=== PATIENT | female | born 1955 | race Caucasian/White ===

== ENCOUNTER 2016-10-22 02:19 | Emergency (ER) | payer MEDICARE ==
[~2016-10-22] VITALS: Ht 157.4 cm; Wt 68.0 kg
[~2016-10-22 02:19] MED LIST: ATIVAN0.5 MG PO; ATIVAN1 MG PO; BENTYL10 MG PO; CIPRO250 MG PO; DONNATAL1 TAB PO; HYDROCODONE BIT1 T11 PO; INDOCIN50 M2 PO; INDOMETHACIN50 MG PO; LOMOTIL 0.025 M1 TA1 PO; NORCO 5-325 TA1 EACH PO; ONDANSETRON HYDR4 M1 SL; PHENERGAN25 M1 PO; PHENERGAN25 M3 PO; PHENERGAN50 M2 PO; PREDNICOT20 MG PO; PREDNISONE10 MG PO; PRILOSEC OTC20 MG PO; PRILOSEC40 MG PO; PROMETHAZINE12.5 M5 PO; RESTORIL30 MG PO; ROBAXIN-750750 MG PO; TRAMADOL HCL50 MG PO; TRAMADOL50 MG PO; ULTRAM50 MG PO; VISTARIL25 MG PO; ZOFRAN ODT4 MG SL; ZOFRAN4 MG PO; Zofran4 MG PO
== END 2016-10-22 03:41 | disposition home or self-care (01) ==
LOC: ED 02:19
DX: K58.9 Irritable bowel syndrome, unspecified (principal); F41.9 Anxiety disorder, unspecified; Z88.6 Allergy status to analgesic agent; Z79.899 Other long term (current) drug therapy

== ENCOUNTER 2016-11-11 21:21 | Emergency (ER) | payer MEDICARE ==
[~2016-11-11] VITALS: Ht 157.4 cm; Wt 68.0 kg
== END 2016-11-11 22:16 | disposition home or self-care (01) ==
LOC: ED 21:21
DX: K58.9 Irritable bowel syndrome, unspecified (principal); G89.29 Other chronic pain; F41.9 Anxiety disorder, unspecified; Z98.890 Other specified postprocedural states; Z90.710 Acquired absence of both cervix and uterus; Z90.49 Acquired absence of other specified parts of digestive tract; Z88.5 Allergy status to narcotic agent; Z88.6 Allergy status to analgesic agent

== ENCOUNTER 2017-01-19 21:01 | Emergency (ER) | payer MEDICARE ==
[~2017-01-19] VITALS: Ht 157.4 cm; Wt 68.0 kg
== END 2017-01-20 00:17 | disposition home or self-care (01) ==
LOC: ED 21:01
DX: G89.29 Other chronic pain (principal); R10.9 Unspecified abdominal pain; R11.2 Nausea with vomiting, unspecified; R19.7 Diarrhea, unspecified; Z88.6 Allergy status to analgesic agent; Z79.899 Other long term (current) drug therapy

== ENCOUNTER 2017-01-26 22:12 | Emergency (ER) | payer MEDICARE ==
[~2017-01-26] VITALS: Ht 157.4 cm; Wt 68.0 kg
[2017-01-26] MEDS ORDERED: OXYCODONE HCL5 MG PO (22:14)
[2017-01-26 23:44] LABS: BASO % 0.3 % (0.0-1.0); EOS # 0.1 10*3/uL (0.0-0.4); EOS % 0.7 % (1.0-4.0); HEMATOCRIT 41.6 % (37.0-47.0); LYMPH # 2.4 10*3/uL (1.3-4.4); LYMPH % 21.3 % (27.0-41.0); MEAN CELL VOLUME 96.7 fl (81.0-99.0); MEAN CORPUSCULAR HGB 32.6 pg (27.0-31.0); MEAN CORPUSCULAR HGB CONC 33.7 g/dl (33.0-37.0); MEAN PLATELET VOLUME 9.1 fl (9.6-12.3); MONO # 0.8 10*3/uL (0.1-1.0); MONO % 7.5 % (3.0-9.0); NEUT # 7.8 10*3/uL (2.3-7.9); NEUT % 69.8 % (47.0-73.0); PLATELET COUNT AUTOMATED 330 10*3/uL (130-400); RED CELL DISTRI WIDTH 12.6 % (0-14.5); WHITE BLOOD COUNT 11.1 10*3/uL (4.8-10.8)
[2017-01-27] LABS: ALBUMIN 3.9 gm/dl (3.1-4.5); ALKALINE PHOSPHATASE 124 U/L (45-117); BILIRUBIN, TOTAL 0.4 mg/dl (0.2-1.0); BUN 12 mg/dl (7-24); CARBON DIOXIDE 27 mmol/L (21-32); CHLORIDE 108 mmol/L (98-107); EST GLOM FILT AFRICAN AMERICAN > 60 ml/min; GLUCOSE 99 mg/dL (65-99); POTASSIUM 3.8 mmol/L (3.5-5.1); SGOT/AST 18 IU/L (3-35); SGPT/ALT 27 U/L (12-78); SODIUM 141 mmol/L (136-145); TOTAL PROTEIN 7.7 gm/dL (6.4-8.2)
== END 2017-01-27 01:18 | disposition home or self-care (01) ==
LOC: ED 22:12
PROVIDERS: Physician Assistant
DX: G89.29 Other chronic pain (principal); R10.84 Generalized abdominal pain; K21.9 Gastro-esophageal reflux disease without esophagitis; K58.9 Irritable bowel syndrome, unspecified; Z98.890 Other specified postprocedural states; Z90.710 Acquired absence of both cervix and uterus; Z90.49 Acquired absence of other specified parts of digestive tract; Z88.5 Allergy status to narcotic agent; Z88.6 Allergy status to analgesic agent; Z79.899 Other long term (current) drug therapy

== ENCOUNTER 2017-02-10 23:27 | Emergency (ER) | payer MEDICARE ==
[~2017-02-10] VITALS: Ht 157.4 cm; Wt 72.6 kg
[~2017-02-10 23:27] MED LIST changes: +OXYCODONE HCL5 MG PO
[2017-02-10] MEDS ORDERED: PROCHLORPERAZIN25 MG R (23:53)
== END 2017-02-11 00:32 | disposition home or self-care (01) ==
LOC: ED 23:27
DX: K58.0 Irritable bowel syndrome with diarrhea (principal); F41.9 Anxiety disorder, unspecified; Z88.6 Allergy status to analgesic agent; Z79.899 Other long term (current) drug therapy

== ENCOUNTER 2017-03-03 19:18 | Emergency (ER) | payer MEDICARE ==
[~2017-03-03] VITALS: Ht 157.4 cm; Wt 72.6 kg
[~2017-03-03 19:18] MED LIST changes: +PROCHLORPERAZIN25 MG R
[2017-03-03 21:19] LABS: BASO % 0.4 % (0.0-1.0); EOS % 0.3 % (1.0-4.0); HEMATOCRIT 40.3 % (37.0-47.0); HEMOGLOBIN 13.4 g/dl (12.0-16.0); LYMPH # 2.2 10*3/uL (1.3-4.4); LYMPH % 23.4 % (27.0-41.0); MEAN CELL VOLUME 97.6 fl (81.0-99.0); MEAN CORPUSCULAR HGB 32.4 pg (27.0-31.0); MEAN CORPUSCULAR HGB CONC 33.3 g/dl (33.0-37.0); MEAN PLATELET VOLUME 9.5 fl (9.6-12.3); MONO # 0.5 10*3/uL (0.1-1.0); MONO % 4.9 % (3.0-9.0); NEUT # 6.6 10*3/uL (2.3-7.9); NEUT % 70.8 % (47.0-73.0); PLATELET COUNT AUTOMATED 339 10*3/uL (130-400); RED BLOOD COUNT 4.13 10*6/uL (4.10-5.10); RED CELL DISTRI WIDTH 12.5 % (0-14.5); WHITE BLOOD COUNT 9.3 10*3/uL (4.8-10.8)
[2017-03-03 21:47] LABS: ALBUMIN 3.9 gm/dl (3.1-4.5); ALKALINE PHOSPHATASE 124 U/L (45-117); BILIRUBIN, TOTAL 0.4 mg/dl (0.2-1.0); BUN 11 mg/dl (7-24); CARBON DIOXIDE 25 mmol/L (21-32); CHLORIDE 112 mmol/L (98-107); EST GLOM FILT AFRICAN AMERICAN > 60 ml/min; GLUCOSE 95 mg/dL (65-99); MAGNESIUM 1.9 mg/dL (1.5-2.1); POTASSIUM 4.1 mmol/L (3.5-5.1); SGOT/AST 25 IU/L (3-35); SGPT/ALT 32 U/L (12-78); SODIUM 142 mmol/L (136-145); TOTAL PROTEIN 7.2 gm/dL (6.4-8.2)
== END 2017-03-03 23:54 | disposition home or self-care (01) ==
LOC: ED 19:18
PROVIDERS: Emergency Medicine Emergency Medical Services
DX: G89.29 Other chronic pain (principal); R10.9 Unspecified abdominal pain; K58.9 Irritable bowel syndrome, unspecified; F41.9 Anxiety disorder, unspecified; Z90.49 Acquired absence of other specified parts of digestive tract; Z88.6 Allergy status to analgesic agent; Z88.8 Allergy status to other drugs, medicaments and biological substances

== ENCOUNTER 2017-03-12 00:11 | Emergency (ER) | payer MEDICARE ==
[~2017-03-12] VITALS: Ht 157.4 cm; Wt 72.6 kg
[2017-03-12] MEDS ORDERED: COMPAZINE R (00:24)
[2017-03-12 01:33] LABS: BASO % 0.5 % (0.0-1.0); EOS # 0.2 10*3/uL (0.0-0.4); EOS % 2.4 % (1.0-4.0); HEMATOCRIT 42.2 % (37.0-47.0); HEMOGLOBIN 14.2 g/dl (12.0-16.0); LYMPH # 3.9 10*3/uL (1.3-4.4); LYMPH % 44.4 % (27.0-41.0); MEAN CELL VOLUME 95.7 fl (81.0-99.0); MEAN CORPUSCULAR HGB 32.2 pg (27.0-31.0); MEAN CORPUSCULAR HGB CONC 33.6 g/dl (33.0-37.0); MEAN PLATELET VOLUME 9.6 fl (9.6-12.3); MONO # 0.8 10*3/uL (0.1-1.0); MONO % 8.7 % (3.0-9.0); NEUT # 3.9 10*3/uL (2.3-7.9); NEUT % 43.8 % (47.0-73.0); PLATELET COUNT AUTOMATED 330 10*3/uL (130-400); RED BLOOD COUNT 4.41 10*6/uL (4.10-5.10); RED CELL DISTRI WIDTH 12.6 % (0-14.5); WHITE BLOOD COUNT 8.9 10*3/uL (4.8-10.8)
[2017-03-12 01:58] LABS: ALBUMIN 3.8 gm/dl (3.1-4.5); ALKALINE PHOSPHATASE 131 U/L (45-117); BILIRUBIN, TOTAL 0.3 mg/dl (0.2-1.0); BUN 12 mg/dl (7-24); CARBON DIOXIDE 22 mmol/L (21-32); CHLORIDE 111 mmol/L (98-107); EST GLOM FILT AFRICAN AMERICAN > 60 ml/min; GLUCOSE 75 mg/dL (65-99); POTASSIUM 4.4 mmol/L (3.5-5.1); SGOT/AST 25 IU/L (3-35); SGPT/ALT 23 U/L (12-78); SODIUM 144 mmol/L (136-145); TOTAL PROTEIN 7.5 gm/dL (6.4-8.2)
[2017-03-12 03:19] LABS: BILIRUBIN NEGATIVE (NEGATIVE); BLOOD NEGATIVE (NEGATIVE); CLARITY CLEAR (CLEAR); COLOR YELLOW (YELLOW); GLUCOSE NEGATIVE (NEGATIVE); KETONE NEGATIVE (NEGATIVE); LEUKO ESTERASE NEGATIVE (NEGATIVE); NITRITE NEGATIVE (NEGATIVE); PROTEIN NEGATIVE (NEGATIVE); SPECIFIC GRAVITY >= 1.030 (1.005-1.030); UROBILINOGEN 0.2 E.U./dl (0.2-1.0)
[2017-03-12 03:42] LABS: BACTERIA TRACE; EPITHELIAL CELLS 15-20; URINE REFLEX COMMENT NO (NO)
== END 2017-03-12 04:23 | disposition home or self-care (01) ==
LOC: ED 00:11
PROVIDERS: Emergency Medicine
DX: K58.0 Irritable bowel syndrome with diarrhea (principal); G89.29 Other chronic pain; R10.84 Generalized abdominal pain; F41.9 Anxiety disorder, unspecified; Z98.890 Other specified postprocedural states; Z90.710 Acquired absence of both cervix and uterus; Z88.5 Allergy status to narcotic agent; Z88.6 Allergy status to analgesic agent; Z79.899 Other long term (current) drug therapy

== ENCOUNTER 2017-03-24 01:54 | Emergency (ER) | payer MEDICARE ==
[~2017-03-24] VITALS: Ht 157.4 cm; Wt 72.6 kg
[~2017-03-24 01:54] MED LIST changes: +COMPAZINE R
[2017-03-24 02:54] LABS: BASO % 0.5 % (0.0-1.0); EOS # 0.2 10*3/uL (0.0-0.4); EOS % 2.9 % (1.0-4.0); HEMATOCRIT 43.3 % (37.0-47.0); HEMOGLOBIN 14.3 g/dl (12.0-16.0); LYMPH # 3.7 10*3/uL (1.3-4.4); LYMPH % 46.9 % (27.0-41.0); MEAN CELL VOLUME 95.8 fl (81.0-99.0); MEAN CORPUSCULAR HGB 31.6 pg (27.0-31.0); MEAN PLATELET VOLUME 9.2 fl (9.6-12.3); MONO # 0.7 10*3/uL (0.1-1.0); MONO % 8.8 % (3.0-9.0); NEUT # 3.2 10*3/uL (2.3-7.9); NEUT % 40.6 % (47.0-73.0); PLATELET COUNT AUTOMATED 342 10*3/uL (130-400); RED BLOOD COUNT 4.52 10*6/uL (4.10-5.10); RED CELL DISTRI WIDTH 12.5 % (0-14.5); WHITE BLOOD COUNT 7.8 10*3/uL (4.8-10.8)
[2017-03-24 03:10] LABS: ALBUMIN 3.7 gm/dl (3.1-4.5); ALKALINE PHOSPHATASE 152 U/L (45-117); BILIRUBIN, TOTAL 0.3 mg/dl (0.2-1.0); BUN 15 mg/dl (7-24); CARBON DIOXIDE 22 mmol/L (21-32); CHLORIDE 110 mmol/L (98-107); EST GLOM FILT AFRICAN AMERICAN > 60 ml/min; GLUCOSE 96 mg/dL (65-99); POTASSIUM 4.8 mmol/L (3.5-5.1); SGOT/AST 33 IU/L (3-35); SGPT/ALT 28 U/L (12-78); SODIUM 143 mmol/L (136-145); TOTAL PROTEIN 7.5 gm/dL (6.4-8.2)
== END 2017-03-24 04:15 | disposition home or self-care (01) ==
LOC: ED 01:54
PROVIDERS: Emergency Medicine
DX: R10.12 Left upper quadrant pain (principal); R11.2 Nausea with vomiting, unspecified; G89.29 Other chronic pain; K58.9 Irritable bowel syndrome, unspecified; Z98.890 Other specified postprocedural states; Z90.710 Acquired absence of both cervix and uterus; Z90.49 Acquired absence of other specified parts of digestive tract; Z88.5 Allergy status to narcotic agent; Z79.899 Other long term (current) drug therapy

== ENCOUNTER 2017-04-01 00:57 | Emergency (ER) | payer MEDICARE ==
[~2017-04-01] VITALS: Ht 157.4 cm; Wt 72.6 kg
== END 2017-04-01 02:28 | disposition home or self-care (01) ==
LOC: ED 00:57
DX: G89.29 Other chronic pain (principal); R10.9 Unspecified abdominal pain; K58.9 Irritable bowel syndrome, unspecified; Z90.49 Acquired absence of other specified parts of digestive tract; Z88.6 Allergy status to analgesic agent

== ENCOUNTER 2017-04-14 18:58 | Emergency (ER) | payer MEDICARE ==
[~2017-04-14] VITALS: Ht 157.4 cm; Wt 72.6 kg
== END 2017-04-14 21:42 | disposition home or self-care (01) ==
LOC: ED 18:58
DX: G89.29 Other chronic pain (principal); R10.9 Unspecified abdominal pain; R19.7 Diarrhea, unspecified; R11.0 Nausea; Z88.6 Allergy status to analgesic agent; Z79.899 Other long term (current) drug therapy; Z90.49 Acquired absence of other specified parts of digestive tract; Z98.890 Other specified postprocedural states; Z90.710 Acquired absence of both cervix and uterus

== ENCOUNTER 2017-04-29 00:02 | Emergency (ER) | payer MEDICARE ==
[~2017-04-29] VITALS: Ht 157.4 cm; Wt 72.6 kg
[2017-04-29] MEDS ORDERED: COMPAZINE R (00:54)
== END 2017-04-29 02:07 | disposition home or self-care (01) ==
LOC: ED 00:02
DX: K58.9 Irritable bowel syndrome, unspecified (principal); R10.84 Generalized abdominal pain; Z88.6 Allergy status to analgesic agent; Z90.49 Acquired absence of other specified parts of digestive tract

== ENCOUNTER 2017-05-27 23:55 | Emergency (ER) | payer MEDICARE ==
[~2017-05-27] VITALS: Ht 157.4 cm; Wt 72.6 kg
== END 2017-05-28 00:55 | disposition left against medical advice (07) ==
LOC: ED 23:55
DX: G89.29 Other chronic pain (principal); R10.9 Unspecified abdominal pain; Z76.5 Malingerer [conscious simulation]; F41.9 Anxiety disorder, unspecified; Z79.899 Other long term (current) drug therapy; Z88.6 Allergy status to analgesic agent

== ENCOUNTER 2017-06-09 23:11 | Emergency (ER) | payer MEDICARE ==
[~2017-06-09] VITALS: Ht 157.4 cm; Wt 72.6 kg
== END 2017-06-10 00:35 | disposition home or self-care (01) ==
LOC: ED 23:11
DX: K58.0 Irritable bowel syndrome with diarrhea (principal); Z88.6 Allergy status to analgesic agent; Z79.899 Other long term (current) drug therapy

== ENCOUNTER 2017-06-23 22:21 | Emergency (ER) | payer MEDICARE ==
[~2017-06-23] VITALS: Ht 162.5 cm; Wt 81.6 kg
== END 2017-06-23 23:40 | disposition home or self-care (01) ==
LOC: ED 22:21
DX: G89.29 Other chronic pain (principal); R10.9 Unspecified abdominal pain; K58.0 Irritable bowel syndrome with diarrhea; Z88.6 Allergy status to analgesic agent; Z79.899 Other long term (current) drug therapy

== ENCOUNTER 2017-07-14 23:31 | Emergency (ER) | payer MEDICARE ==
[~2017-07-14] VITALS: Ht 162.5 cm; Wt 90.7 kg
[2017-07-15] MEDS ORDERED: ATIVAN1 MG PO (00:31)
== END 2017-07-15 00:51 | disposition home or self-care (01) ==
LOC: ED 23:31
DX: F41.9 Anxiety disorder, unspecified (principal); G89.29 Other chronic pain; R10.84 Generalized abdominal pain; K58.9 Irritable bowel syndrome, unspecified; F11.10 Opioid abuse, uncomplicated; Z98.890 Other specified postprocedural states; Z90.710 Acquired absence of both cervix and uterus; Z90.49 Acquired absence of other specified parts of digestive tract; Z79.899 Other long term (current) drug therapy; Z88.5 Allergy status to narcotic agent; Z88.6 Allergy status to analgesic agent

== ENCOUNTER 2017-07-29 23:32 | Emergency (ER) | payer MEDICARE ==
[~2017-07-29] VITALS: Ht 157.4 cm; Wt 72.6 kg
== END 2017-07-30 00:32 | disposition home or self-care (01) ==
LOC: ED 23:32
DX: G89.29 Other chronic pain (principal); R10.9 Unspecified abdominal pain; R19.7 Diarrhea, unspecified; Z88.6 Allergy status to analgesic agent; Z79.899 Other long term (current) drug therapy; Z98.890 Other specified postprocedural states; Z90.49 Acquired absence of other specified parts of digestive tract

== ENCOUNTER 2017-08-19 00:28 | Emergency (ER) | payer MEDICARE ==
[~2017-08-19] VITALS: Wt 72.6 kg
== END 2017-08-19 01:17 | disposition home or self-care (01) ==
LOC: ED 00:28
DX: R10.13 Epigastric pain (principal); G89.29 Other chronic pain; Z88.6 Allergy status to analgesic agent; Z88.8 Allergy status to other drugs, medicaments and biological substances

== ENCOUNTER 2017-09-29 21:59 | Emergency (ER) | payer MEDICARE ==
[~2017-09-29] VITALS: Ht 157.4 cm; Wt 72.6 kg
== END 2017-09-29 23:40 | disposition home or self-care (01) ==
LOC: ED 21:59
DX: G89.29 Other chronic pain (principal); R10.9 Unspecified abdominal pain; Z88.6 Allergy status to analgesic agent; Z79.899 Other long term (current) drug therapy

== ENCOUNTER 2018-02-18 04:48 | Emergency (ER) | payer MEDICARE ==
[~2018-02-18] VITALS: Ht 157.4 cm; Wt 72.6 kg
[2018-02-18] MEDS ORDERED: REMICADE100 MG IM (05:04)
[2018-02-18 06:03] LABS: ALBUMIN 3.8 gm/dl (3.1-4.5); ALKALINE PHOSPHATASE 154 U/L (45-117); BUN 11 mg/dl (7-24); CHLORIDE 109 mmol/L (98-107); CREATININE 0.94 mg/dL (0.55-1.02); LIPASE 66 U/L (73-393); POTASSIUM 4.3 mmol/L (3.5-5.1); SGOT/AST 17 IU/L (3-35); SGPT/ALT 21 U/L (12-78); SODIUM 140 mmol/L (136-145); TOTAL PROTEIN 7.5 gm/dL (6.4-8.2)
[2018-02-18 06:07] LABS: BASO % 0.3 % (0.0-1.0); EOS # 0.2 10*3/uL (0.0-0.4); EOS % 1.7 % (1.0-4.0); HEMATOCRIT 41.8 % (37.0-47.0); HEMOGLOBIN 13.8 g/dl (12.0-16.0); LYMPH # 2.2 10*3/uL (1.3-4.4); LYMPH % 22.6 % (27.0-41.0); MEAN CELL VOLUME 96.5 fl (81.0-99.0); MEAN CORPUSCULAR HGB 31.9 pg (27.0-31.0); MEAN PLATELET VOLUME 9.7 fl (9.6-12.3); MONO # 0.5 10*3/uL (0.1-1.0); MONO % 5.2 % (3.0-9.0); NEUT # 6.6 10*3/uL (2.3-7.9); NEUT % 69.9 % (47.0-73.0); NUCLEATED RED BLOOD CELL 0.2 % (0.0-0.0); PLATELET COUNT AUTOMATED 304 10*3/uL (130-400); RED BLOOD COUNT 4.33 10*6/uL (4.10-5.10); RED CELL DISTRI WIDTH 12.7 % (0-14.5); WHITE BLOOD COUNT 9.5 10*3/uL (4.8-10.8)
[2018-02-18 06:52] LABS: URINE AMPHETAMINES < 1000 (1000ng/ml); URINE BENZODIAZEPINES < 200 (200ng/ml); URINE CANNABINOIDS (THC) < 50 (50ng/ml); URINE COCAINE < 300 (300ng/ml); URINE METHADONE < 300 (300ng/ml); URINE OPIATES < 300 (300ng/ml)
[2018-02-18 06:57] LABS: URINE BARBITURATES < 200 (200ng/ml)
[2018-02-18 07:05] LABS: BILIRUBIN NEGATIVE (NEGATIVE); BLOOD NEGATIVE (NEGATIVE); CLARITY CLEAR (CLEAR); COLOR YELLOW (YELLOW); GLUCOSE NEGATIVE (NEGATIVE); KETONE NEGATIVE (NEGATIVE); LEUKO ESTERASE TRACE (NEGATIVE); NITRITE NEGATIVE (NEGATIVE); SPECIFIC GRAVITY <= 1.005 (1.005-1.030); UROBILINOGEN 0.2 E.U./dl (0.2-1.0)
[2018-02-18 07:09] LABS: URINE PHENCYCLIDINE < 25 (25ng/ml)
== END 2018-02-18 07:25 | disposition home or self-care (01) ==
LOC: ED 04:48
PROVIDERS: Emergency Medicine
DX: R10.9 Unspecified abdominal pain (principal); G89.29 Other chronic pain; K58.9 Irritable bowel syndrome, unspecified; Z98.890 Other specified postprocedural states; Z90.710 Acquired absence of both cervix and uterus; Z79.899 Other long term (current) drug therapy; Z88.5 Allergy status to narcotic agent; Z88.6 Allergy status to analgesic agent; Z88.8 Allergy status to other drugs, medicaments and biological substances

== ENCOUNTER 2018-02-23 20:37 | Emergency (ER) | payer MEDICARE ==
[~2018-02-23] VITALS: Ht 157.4 cm; Wt 72.6 kg
[~2018-02-23 20:37] MED LIST changes: +REMICADE100 MG IM
== END 2018-02-24 00:30 | disposition home or self-care (01) ==
LOC: ED 20:37
DX: G89.29 Other chronic pain (principal); R10.30 Lower abdominal pain, unspecified; Z98.890 Other specified postprocedural states; Z90.710 Acquired absence of both cervix and uterus; Z79.899 Other long term (current) drug therapy; Z88.5 Allergy status to narcotic agent; Z88.6 Allergy status to analgesic agent

== ENCOUNTER 2018-03-18 22:18 | Emergency (ER) | payer MEDICARE ==
[~2018-03-18] VITALS: Ht 157.4 cm; Wt 72.6 kg
== END 2018-03-18 22:55 | disposition home or self-care (01) ==
LOC: ED 22:18
DX: G89.29 Other chronic pain (principal); R10.30 Lower abdominal pain, unspecified; F11.10 Opioid abuse, uncomplicated; K58.9 Irritable bowel syndrome, unspecified; Z98.890 Other specified postprocedural states; Z90.710 Acquired absence of both cervix and uterus; Z79.899 Other long term (current) drug therapy; Z88.5 Allergy status to narcotic agent; Z88.6 Allergy status to analgesic agent

== ENCOUNTER 2018-03-22 22:47 | Emergency (ER) | payer MEDICARE ==
[~2018-03-22] VITALS: Wt 72.6 kg
== END 2018-03-23 00:04 | disposition home or self-care (01) ==
LOC: ED 22:47
DX: G89.29 Other chronic pain (principal); R10.9 Unspecified abdominal pain; F41.9 Anxiety disorder, unspecified; Z88.6 Allergy status to analgesic agent; Z88.5 Allergy status to narcotic agent; Z88.8 Allergy status to other drugs, medicaments and biological substances; Z79.899 Other long term (current) drug therapy

== ENCOUNTER 2018-03-30 00:53 | Emergency (ER) | payer MEDICARE ==
[~2018-03-30] VITALS: Ht 157.4 cm; Wt 72.6 kg
== END 2018-03-30 01:16 | disposition left against medical advice (07) ==
LOC: ED 00:53
DX: Z76.5 Malingerer [conscious simulation] (principal); R10.9 Unspecified abdominal pain; F41.9 Anxiety disorder, unspecified; G89.29 Other chronic pain; K58.9 Irritable bowel syndrome, unspecified; Z88.5 Allergy status to narcotic agent; Z88.6 Allergy status to analgesic agent; Z79.899 Other long term (current) drug therapy

== ENCOUNTER 2018-04-01 00:53 | Emergency (ER) | payer MEDICARE ==
[~2018-04-01] VITALS: Ht 157.4 cm; Wt 72.6 kg
== END 2018-04-01 02:12 | disposition left against medical advice (07) ==
LOC: ED 00:53
DX: R10.9 Unspecified abdominal pain (principal); G89.29 Other chronic pain; K58.9 Irritable bowel syndrome, unspecified; F11.10 Opioid abuse, uncomplicated; Z98.890 Other specified postprocedural states; Z90.710 Acquired absence of both cervix and uterus; Z90.49 Acquired absence of other specified parts of digestive tract; Z79.899 Other long term (current) drug therapy; Z88.5 Allergy status to narcotic agent; Z88.6 Allergy status to analgesic agent

== ENCOUNTER 2018-04-28 11:24 | Emergency (ER) | payer MEDICARE ==
[~2018-04-28] VITALS: Ht 157.4 cm; Wt 72.6 kg
== END 2018-04-28 12:42 | disposition home or self-care (01) ==
LOC: ED 11:24
DX: F41.9 Anxiety disorder, unspecified (principal); G89.29 Other chronic pain; Z98.890 Other specified postprocedural states; Z90.49 Acquired absence of other specified parts of digestive tract; Z88.5 Allergy status to narcotic agent; Z79.899 Other long term (current) drug therapy; Z88.6 Allergy status to analgesic agent

== ENCOUNTER 2020-08-11 22:14 | Emergency (ER) | payer OTHER ==
[~2020-08-11] VITALS: Ht 157.4 cm; Wt 72.6 kg
[2020-08-11 23:55] LABS: BASO % 0.3 % (0.0-1.0); EOS # 0.2 10*3/uL (0.0-0.4); HEMATOCRIT 39.9 % (37.0-47.0); LYMPH # 2.3 10*3/uL (1.3-4.4); LYMPH % 22.6 % (27.0-41.0); MEAN CELL VOLUME 99.5 fl (81.0-99.0); MEAN CORPUSCULAR HGB 31.7 pg (27.0-31.0); MEAN CORPUSCULAR HGB CONC 31.8 g/dl (33.0-37.0); MEAN PLATELET VOLUME 9.7 fl (9.6-12.3); MONO # 0.7 10*3/uL (0.1-1.0); NEUT # 6.8 10*3/uL (2.3-7.9); NEUT % 67.9 % (47.0-73.0); PLATELET COUNT AUTOMATED 312 10*3/uL (130-400); RED BLOOD COUNT 4.01 10*6/uL (4.10-5.10); RED CELL DISTRI WIDTH 13.2 % (0-14.5)
[2020-08-12 00:10] LABS: ALBUMIN 3.5 gm/dl (3.1-4.5); ALKALINE PHOSPHATASE 131 U/L (45-117); BUN 10 mg/dl (7-24); CHLORIDE 112 mmol/L (98-107); LIPASE 43 U/L (73-393); POTASSIUM 4.1 mmol/L (3.5-5.1); SGOT/AST 25 IU/L (3-35); SGPT/ALT 26 U/L (12-78); SODIUM 144 mmol/L (136-145)
[2020-08-12 00:39] LABS: BILIRUBIN Negative (Negative); BLOOD Negative (Negative); CLARITY Cloudy (Clear); COLOR Yellow (Yellow); GLUCOSE Negative (Negative); KETONE Negative (Negative); LEUKO ESTERASE 3+ (Negative); NITRITE Negative (Negative); PH 7.5 (4.5-8.0); UROBILINOGEN 0.2 E.U./dl (0.0-1.0)
[2020-08-12 01:01] LABS: EPITHELIAL CELLS 31-40; WBC 21-30 wbc/hpf (0-5)
[2020-08-12 01:02] LABS: BACTERIA 2+
[2020-08-12] MEDS ORDERED: CEPHALEXIN500 M1 PO (03:46)
== END 2020-08-12 03:59 | disposition home or self-care (01) ==
LOC: ED 22:14
PROVIDERS: Nurse Practitioner Family
DX: N39.0 Urinary tract infection, site not specified (principal); Z88.6 Allergy status to analgesic agent; Z79.899 Other long term (current) drug therapy

== ENCOUNTER 2020-08-14 23:58 | Emergency (ER) | payer OTHER ==
[~2020-08-14] VITALS: Wt 72.6 kg
[~2020-08-14 23:58] MED LIST changes: +CEPHALEXIN500 M1 PO
[2020-08-15 00:40] LABS: BASO % 0.4 % (0.0-1.0); EOS # 0.2 10*3/uL (0.0-0.4); EOS % 1.9 % (1.0-4.0); HEMATOCRIT 43.1 % (37.0-47.0); LYMPH # 2.7 10*3/uL (1.3-4.4); LYMPH % 28.4 % (27.0-41.0); MEAN CELL VOLUME 98.6 fl (81.0-99.0); MEAN CORPUSCULAR HGB 31.6 pg (27.0-31.0); MONO # 0.7 10*3/uL (0.1-1.0); MONO % 7.7 % (3.0-9.0); NEUT # 5.9 10*3/uL (2.3-7.9); NEUT % 61.5 % (47.0-73.0); PLATELET COUNT AUTOMATED 312 10*3/uL (130-400); RED BLOOD COUNT 4.37 10*6/uL (4.10-5.10); RED CELL DISTRI WIDTH 12.9 % (0-14.5); WHITE BLOOD COUNT 9.6 10*3/uL (4.8-10.8)
[2020-08-15 00:57] LABS: ALBUMIN 3.7 gm/dl (3.1-4.5); ALKALINE PHOSPHATASE 144 U/L (45-117); BUN 11 mg/dl (7-24); CHLORIDE 111 mmol/L (98-107); CREATININE 0.86 mg/dL (0.55-1.02); LIPASE 46 U/L (73-393); SGOT/AST 18 IU/L (3-35); SGPT/ALT 22 U/L (12-78); SODIUM 143 mmol/L (136-145); TOTAL PROTEIN 7.7 gm/dL (6.4-8.2)
[2020-08-15 01:04] LABS: BILIRUBIN 1+ (Negative); BLOOD Negative (Negative); CLARITY Cloudy (Clear); COLOR Dark Yellow (Yellow); GLUCOSE Negative (Negative); KETONE Negative (Negative); LEUKO ESTERASE 2+ (Negative); NITRITE Negative (Negative); PH 6.5 (4.5-8.0); SPECIFIC GRAVITY 1.025 (1.001-1.030)
[2020-08-15 01:12] LABS: URINE AMPHETAMINES < 1000 (1000ng/ml); URINE BARBITURATES < 200 (200ng/ml); URINE BENZODIAZEPINES < 200 (200ng/ml); URINE CANNABINOIDS (THC) < 50 (50ng/ml); URINE COCAINE < 300 (300ng/ml); URINE METHADONE < 300 (300ng/ml); URINE OPIATES < 300 (300ng/ml)
[2020-08-15 01:13] LABS: URINE PHENCYCLIDINE < 25 (25ng/ml)
[2020-08-15 01:15] LABS: BACTERIA 2+; WBC 21-30 wbc/hpf (0-5)
[2020-08-15] MEDS ORDERED: CEPHALEXIN500 M1 PO (02:36)
== END 2020-08-15 02:58 | disposition home or self-care (01) ==
LOC: ED 23:58
PROVIDERS: Emergency Medicine
DX: K57.30 Diverticulosis of large intestine without perforation or abscess without bleeding (principal); N39.0 Urinary tract infection, site not specified; Z88.8 Allergy status to other drugs, medicaments and biological substances; Z79.899 Other long term (current) drug therapy

== ENCOUNTER 2020-09-02 19:03 | Emergency (ER) | payer OTHER ==
[~2020-09-02] VITALS: Ht 157.4 cm; Wt 72.6 kg
[2020-09-02 23:06] LABS: BASO # 0.1 10*3/uL (0.0-0.1); BASO % 0.5 % (0.0-1.0); EOS % 0.3 % (1.0-4.0); HEMATOCRIT 44.6 % (37.0-47.0); LYMPH # 2.4 10*3/uL (1.3-4.4); LYMPH % 24.6 % (27.0-41.0); MEAN CELL VOLUME 98.5 fl (81.0-99.0); MEAN CORPUSCULAR HGB 31.8 pg (27.0-31.0); MEAN CORPUSCULAR HGB CONC 32.3 g/dl (33.0-37.0); MEAN PLATELET VOLUME 9.9 fl (9.6-12.3); MONO # 0.7 10*3/uL (0.1-1.0); MONO % 7.3 % (3.0-9.0); NEUT # 6.6 10*3/uL (2.3-7.9); NEUT % 67.1 % (47.0-73.0); PLATELET COUNT AUTOMATED 317 10*3/uL (130-400); RED BLOOD COUNT 4.53 10*6/uL (4.10-5.10); RED CELL DISTRI WIDTH 12.6 % (0-14.5); WHITE BLOOD COUNT 9.8 10*3/uL (4.8-10.8)
[2020-09-02 23:21] LABS: ALKALINE PHOSPHATASE 145 U/L (45-117); BUN 11 mg/dl (7-24); CHLORIDE 109 mmol/L (98-107); CREATININE 0.83 mg/dL (0.55-1.02); LIPASE 40 U/L (73-393); POTASSIUM 3.7 mmol/L (3.5-5.1); SGOT/AST 17 IU/L (3-35); SGPT/ALT 24 U/L (12-78); SODIUM 141 mmol/L (136-145)
[2020-09-03 01:10] LABS: BILIRUBIN Negative (Negative); BLOOD Negative (Negative); CLARITY Clear (Clear); COLOR Yellow (Yellow); GLUCOSE Negative (Negative); KETONE 2+ (Negative); LEUKO ESTERASE Negative (Negative); NITRITE Negative (Negative)
[2020-09-03 01:18] LABS: RBC 0-2 rbc/hpf (0-2); WBC 0-2 wbc/hpf (0-5)
== END 2020-09-03 01:22 | disposition left against medical advice (07) ==
LOC: ED 19:03
PROVIDERS: Nurse Practitioner
DX: K50.90 Crohn's disease, unspecified, without complications (principal); K52.9 Noninfective gastroenteritis and colitis, unspecified; Z88.6 Allergy status to analgesic agent; Z79.899 Other long term (current) drug therapy

== ENCOUNTER 2020-09-04 09:08 | Emergency (ER) | payer OTHER ==
[~2020-09-04] VITALS: Ht 157.4 cm; Wt 72.6 kg
== END 2020-09-04 12:05 | disposition left against medical advice (07) ==
LOC: ED 09:08
DX: R10.9 Unspecified abdominal pain (principal); G89.29 Other chronic pain; K21.9 Gastro-esophageal reflux disease without esophagitis; F41.9 Anxiety disorder, unspecified; Z88.5 Allergy status to narcotic agent; Z88.8 Allergy status to other drugs, medicaments and biological substances; Z79.899 Other long term (current) drug therapy